=== PATIENT | female | born 1950 | race Hispanic/Latino ===

== ENCOUNTER 2019-07-21 08:35 | Outpatient (CLI) | payer MEDICARE, OTHER ==
[2019-07-21 09:28] LABS: Blood Urea Nitrogen 23 mg/dL (7-17)
--- NOTE | 2019-07-21 10:30 | Cat Scan Report ---
CTA ABDOMEN AND PELVIS WITHOUT AND WITH IV CONTRAST INDICATION: Celiac artery compression syndrome. TECHNIQUE: Axial CT images were obtained through the abdomen and pelvis before and after after injection of 100 mL Omnipaque 300 IV contrast. 3 plane MIP reconstructions were produced. [facility] CT [facility] CT dose reduction for ALARA by means of automated exposure control. COMPARISON: None available. FINDINGS: VASCULAR FINDINGS: AORTA: No significant abnormality. CELIAC TRUNK: A focal severe stenosis measuring 3-4 mm is seen at the origin. There is poststenotic d ilatation. No additional significant abnormality is seen. SUPERIOR MESENTERIC ARTERY: No significant abnormality. RENAL ARTERIES: There is a single patent left renal artery of normal caliber. Two patent right renal arteries of normal caliber are seen. The left renal vein is preaortic. INFERIOR MESENTERIC ARTERY: No significant abnormality. RIGHT ILIAC ARTERIES: Mild nonobstructive atherosclerosis is seen at the origin of the right common i liac artery and along the right internal iliac artery. No additional significant abnormality. LEFT ILIAC ARTERIES: No significant abnormality.. FEMORAL ARTERIES: No significant abnormality. NONTARGET STRUCTURES: LOWER CHEST: ABDOMEN: There is a probable cyst along the posterior segment of the right hepatic lobe measuring 1.1 cm. No additional significant abnormality. PELVIS: No significant abnormality. SKELETAL: No acute abnormality. Mild degenerative changes are noted along the spine. ADDITIONAL FINDINGS: None. IMPRESSION: 1. 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 2. Additional findings as above. Signer Name: Javier Rodriguez MD Signed: 07/21/2019 10:26 AM Workstation Name: [id number]
== END 2019-07-21 08:36 | disposition home or self-care (01) ==
LOC: CT 08:35
PROVIDERS: ATTEND Radiology Diagnostic Radiology
DX: I70.209 Unspecified atherosclerosis of native arteries of extremities, unspecified extremity (principal); I77.4 Celiac artery compression syndrome
CPT/HCPCS: 36415; 74174; 82565; 84520; Q9967

== ENCOUNTER 2021-08-27 11:25 | Outpatient (CLI) | payer MEDICARE, OTHER ==
--- NOTE | 2021-08-27 15:56 | Mammography Report ---
DEXA BONE DENSITY SCAN INDICATION / CLINICAL INFORMATION: N95.1 MENOPAUSAL AND FEMALE CLIMACTERIC STATES. 70 years Female COMPARISON: None available. LUMBAR SPINE, L1-L4: - Bone mineral density (BMD) = 0.692 g/cm2. - T-score = -3.2 - Change (%) since most recent prior (if available): None available. LEFT HIP, NECK : - Bone mineral density (BMD) = 0.530 g/cm2. - T-score = -2.9 - Change (%) since most recent prior (if available): None available. IMPRESSION: 1. WHO Classification: Osteoporosis. Fracture Risk: High. 2. 10-Year Fracture Risk (FRAX) = Major Osteoporotic Not reported.% / Hip: Not reported.% FRAX generally not reported for patients with normal or osteoporotic BMD, in upc-[id number] brayden ents younger than age 50, or in patients undergoing pharmacotherapy BMD Reporting Guidelines (ISCD, 2015) BMD Reporting in Postmenopausal Women and in Men Age 50 and Older - T-scores are preferred. - The WHO densitometric classification is applicable. BMD Reporting in Females Prior to Menopause and in Males Younger Than Age 50 - Z-scores, not T-scores, are preferred. This is particularly important in children. - A Z-score of -2.0 or lower is defined as below the expected range for age, and a Z-score above -2.0 is within the expected range for age. - Osteoporosis cannot be diagnosed in men under age 50 on the basis of BMD alone. - The WHO diagnostic criteria may be applied to women in the menopausal transition. http://www.iscd.org/official-positions/1525-kgzt-atfqlowv-positions-adult/ Signer Name: Dimas Montes MD Signed: 08/27/2021 3:51 PM Workstation Name: [facility] [email or web address]
== END 2021-08-27 11:26 | disposition home or self-care (01) ==
LOC: SPVWC 11:25
PROVIDERS: ATTEND Nurse Practitioner Family
DX: Z13.820 Encounter for screening for osteoporosis (principal); M81.0 Age-related osteoporosis without current pathological fracture; N95.1 Menopausal and female climacteric states
CPT/HCPCS: 77080